=== PATIENT | female | born 2000 | race Caucasian/White ===

== ENCOUNTER 2022-06-16 15:54 | Emergency (ER) | payer MEDICAID ==
[~2022-06-16] VITALS: Ht 170.2 cm; Wt 52.0 kg
[2022-06-16] MEDS ORDERED: MORPHINE SULFATE 4 MG/ML CPJ (NOT FOR IM USE) IV ONE (19:30)
[2022-06-16 20:22] LABS: CLARITY URINE CLEAR (CLEAR); COLOR URINE YELLOW (YELLOW); KETONES URINE TRACE (NEGATIVE); LEUKOCYTE ESTERASE URINE NEGATIVE (NEGATIVE); NITRITE URINE NEGATIVE (NEGATIVE); OCCULT BLOOD URINE NEGATIVE (NEGATIVE); PH URINE 5.5 (4.5-8.0); PROTEIN URINE 1+ (NEGATIVE); SPECIFIC GRAVITY URINE 1.029 (1.005-1.030); UROBILINOGEN URINE 0.2 E.U./dL (0.2-1.0)
[2022-06-16 20:40] VITALS: BP 101/73
[2022-06-16] MEDS ORDERED: AZITHROMYCIN 500 MG TABLET PO ONE (20:45)
[2022-06-16] MEDS ORDERED: CEFTRIAXONE SODIUM 500 MG/VIAL IM ONE (20:45)
[2022-06-16] MEDS ORDERED: METR-167 MT (20:54)
[2022-06-16] MEDS ORDERED: DOXY100C5 MT (20:55)
== END 2022-06-17 00:29 | disposition left against medical advice (07) ==
LOC: ER 15:54
DX: S09.8XXA Other specified injuries of head, initial encounter (principal); M25.512 Pain in left shoulder; R07.89 Other chest pain; S30.1XXA Contusion of abdominal wall, initial encounter; K92.0 Hematemesis; M79.18 Myalgia, other site; G89.11 Acute pain due to trauma; A54.02 Gonococcal vulvovaginitis, unspecified; S00.83XA Contusion of other part of head, initial encounter; V49.49XA Driver injured in collision with other motor vehicles in traffic accident, initial encounter; Y93.89 Activity, other specified; Y92.488 Other paved roadways as the place of occurrence of the external cause
CPT/HCPCS: 70450; 71101; 73000; 73030; 76705; 81003; 81025; 96372; 96374; 99285; J0696; J2270